=== PATIENT | male | born 1985 | race Two or more races ===

== ENCOUNTER 2017-04-07 00:41 | Emergency (ER) | payer BC ==
[~2017-04-07] VITALS: Ht 172.7 cm; Wt 99.8 kg
[~2017-04-07 00:41] MED LIST: RANITIDINE HCL150 MG ORAL
--- NOTE | 2017-04-07 01:37 | Emergency Room Report ---
History of Present Illness General Chief Complaint: Lower Extremity Injury Source: Patient Present Illness HPI Is a 31-year-old male with no past history. He presents with right ankle/foot pain for one day. No trauma. Pain is to the dorsum of the ankle/foot area. Worse with walking. Pain is 12 out of 10. Similar symptom in the past. Denies any other complaint. No fever or chills. No nausea no vomiting. Allergies: Coded Allergies: No Known Allergies (Unverified , 06/30/15) Patient History Past Medical History: see triage record, old chart reviewed Past Surgical History: none Pertinent Family History: none Social History: Denies: smoking Immunizations: other Reviewed Nursing Documentation: PMH: Agreed, PSxH: Agreed Nursing Documentation-PMH Past Medical History: No History, Except For Hx Asthma: Yes Review of Systems Eye: Denies: eye pain, blurred vision ENT: Denies: ear pain, nose congestion, throat swelling Respiratory: Denies: cough, shortness of breath Cardiovascular: Denies: chest pain, palpitations Gastrointestinal: Denies: abdominal pain, diarrhea, nausea, vomiting Musculoskeletal: Reports: joint pain, Denies: back pain Skin: Denies: rash Neurological: Denies: headache, numbness Endocrine: Denies: increased thirst, increased urine Hematologic/Lymphatic: Denies: easy bruising All Other Systems: negative except mentioned in HPI Physical Exam Vital Signs Date Time Temp Pulse Resp B/P (MAP) Pulse Ox O2 Delivery O2 Flow Rate FiO2 04/07/17 01:00 99.7 109 18 155/92 97 Room Air vitals with high blood pressure Sp02 EP Interpretation: reviewed, normal General Appearance: well appearing, no apparent distress, alert Head: normocephalic, atraumatic Eyes: bilateral eye PERRL, bilateral eye EOMI ENT: hearing grossly normal, normal pharynx Neck: full range of motion, supple, no meningismus Respiratory: chest non-tender, lungs clear, normal breath sounds Cardiovascular #1: regular rate, rhythm, no murmur Gastrointestinal: normal bowel sounds, non tender, no mass, no organomegaly, no bruit, non-distended Musculoskeletal: back normal, normal range of motion, other - Right ankle: No edema. No redness. No warmth. Tenderness over the anterior aspect of the ankle/proximal foot. Sensation normal. Pulse normal. Psychiatric: mood/affect normal Skin: warm/dry Procedures Splinting Splinting : Consent: Verbal Location: Right ankle Pre-Made Type: KIM wrap Pre-Proc Neuro Vasc Exam: normal Post-Proc Neuro Vasc Exam: normal Patient Tolerated: Well Complications: None Medical Decision Making Diagnostic Impression: Primary Impression: Ankle joint pain Qualified Codes: M25.571 - Pain in right ankle and joints of right foot ER Course This agent presents with pain over the ankle/foot area. Could be inflammatory process. I don't feel any redness or warmth to indicate gout, pseudogout or septic joint. no fractures Or dislocation. We'll discharge home. Other X-Ray Diagnostic Results Other X-Ray Diagnostic Results : X-Ray ordered: X-rays right ankle # of Views/Limited Vs Complete: 3 View Indication: Pain EP Interpretation: Yes Interpretation: no dislocation, no soft tissue swelling, no fractures Impression: No acute disease Electronically Signed by: Electronically signed by Susan Hui MD Last Vital Signs Date Time Temp Pulse Resp B/P (MAP) Pulse Ox O2 Delivery O2 Flow Rate FiO2 04/07/17 01:00 99.7 109 18 155/92 97 Room Air Status: improved Disposition: HOME, SELF-CARE Condition: Stable Scripts Ibuprofen* (MOTRIN*) 600 Mg Tablet 600 MG ORAL THREE TIMES A DAY, #30 TAB 0 Refills Prov: SUSAN HUI M.D. 04/07/17 Referrals: NOT CHOSEN NITO/,REFERRING (PCP) Patient Instructions: Ankle Sprain Additional Instructions: Elevate ankle. Ice pack to the area. Followup with your DrPérez in 7 days. Return if worse. SUSAN HUI M.D. Apr 07, 2017 01:37
[2017-04-07] MEDS ORDERED: IBUPROFEN600 MG ORAL (01:41)
[2017-04-07 01:46] VITALS: BP 155/92
[2017-04-07] MEDS ORDERED: Norco 5mg/325mg tab ORAL ONE (02:00)
--- NOTE | 2017-04-07 10:22 | Diagnostic Imaging Report ---
History: Pain Technique: Frontal, lateral, and oblique views of the right foot are provided. Comparison: No prior study is available for comparison. Findings: Overall bony mineralization is within normal limits. There is no evidence of acute fracture or dislocation. No significant erosive or arthritic change is noted. The soft tissues appear grossly normal. No significant joint effusion is noted. Impression: No evidence of acute fracture or dislocation.
== END 2017-04-07 01:47 | disposition home or self-care (01) ==
LOC: EMR 01:15
DX: M25.571 Pain in right ankle and joints of right foot (principal); J45.909 Unspecified asthma, uncomplicated
CPT/HCPCS: 99283

== ENCOUNTER 2019-01-04 20:20 | Emergency (ER) | payer BC ==
[~2019-01-04] VITALS: Ht 170.2 cm; Wt 95.3 kg
[~2019-01-04 20:20] MED LIST changes: +IBUPROFEN600 MG ORAL
[2019-01-04 20:25] VITALS: BP 163/104
[2019-01-04] MEDS ORDERED: NKM (20:25)
--- NOTE | 2019-01-04 20:25 | NUR ---
ED Nurse Note: pt ambulated to ed c/o right earache x 2 days. pt states, "I may have irritated it by over cleaining with a qtip. it feels like its swollen"
--- NOTE | 2019-01-04 20:27 | NUR ---
ED Nurse Note: mother nika at bedside
[2019-01-04] MEDS ORDERED: CIPRODEX OTIC7.5 M1 RIGHT EAR (20:36)
[2019-01-04] MEDS ORDERED: AUGMENTIN 875-1 EAC1 ORAL (20:36)
--- NOTE | 2019-01-04 20:37 | Emergency Room Report ---
History of Present Illness General Chief Complaint: Earache Source: Patient Present Illness HPI 33-year-old male, presents with right ear pain, started 2 days prior to arrival sharp, achy in nature, moderate severity, no aggravating relieving factors, patient thinks he has been using a Q-tip that may have aggravated it, no fever no chills, no chest pain, no shortness of breath Allergies: Coded Allergies: No Known Allergies (Unverified , 06/30/15) Patient History Social History: Reports: smoking, alcohol use Reviewed Nursing Documentation: PMH: Agreed; PSxH: Agreed Nursing Documentation-PMH Past Medical History: No History, Except For Hx Asthma: Yes Review of Systems All Other Systems: negative except mentioned in HPI Physical Exam Vital Signs Date Time Temp Pulse Resp B/P (MAP) Pulse Ox O2 Delivery O2 Flow Rate FiO2 01/04/19 20:22 99.0 77 18 163/104 (123) 97 Room Air Sp02 EP Interpretation: reviewed, normal General Appearance: well appearing, no apparent distress, alert Head: normocephalic, atraumatic Eyes: bilateral eye PERRL, bilateral eye EOMI ENT: uvula midline, moist mucus membranes, other - Left ear normal, right ear canal swollen, difficult to appreciate TM, Neck: supple, thyroid normal, supple/symm/no masses Respiratory: lungs clear, no respiratory distress, no retraction, no accessory muscle use Cardiovascular #1: normal peripheral pulses, regular rate, rhythm, no edema, no gallop, no murmur Gastrointestinal: non tender, soft, no guarding, no rebound Musculoskeletal: normal inspection Neurologic: alert, oriented x3 Psychiatric: mood/affect normal Skin: no rash, warm/dry Medical Decision Making Diagnostic Impression: Primary Impression: Earache, right Additional Impression: Otitis externa of right ear ER Course Patient with most likely an otitis externa, difficult to appreciate eardrum, patient counseled not to use Q-tips, to follow-up with an ENT, return precautions discussed, antibiotic provide, disposition home with return precautions Last Vital Signs Date Time Temp Pulse Resp B/P (MAP) Pulse Ox O2 Delivery O2 Flow Rate FiO2 01/04/19 20:25 99.0 77 18 163/104 97 Room Air Disposition: HOME, SELF-CARE Condition: Stable Scripts Amoxicillin/Potassium Clav 875-125* (AUGMENTIN 875-125 TABLET*) 1 Each Tablet 1 TAB ORAL TWICE A DAY, #20 TAB Prov: Amos Hernandez MD 01/04/19 Ciprofloxacin Hcl/Dexameth (CIPRODEX OTIC SUSPENSION) 7.5 Ml Drops.susp 4 DROP RIGHT EAR TWICE A DAY for 10 Days, #1 EA Prov: Amos Hernandez MD 01/04/19 Referrals: [facility] Patient Instructions: Otitis Media, Adult, [id number], Otitis Externa, Easy- to-Read Additional Instructions: The patient was provided with discharge instructions, notified to follow-up with a primary care doctor and or specialist in the next 24-48 hours, and to return to the ED if they have worsening of their symptoms. Please note that this report is being documented using [employer] technology. This can lead to erroneous entry secondary to incorrect interpretation by the dictating instrument. Please follow-up with an ENT doctor Amos Hernandez MD Jan 04, 2019 20:37
--- NOTE | 2019-01-04 20:40 | NUR ---
ER DISCHARGE NOTE: Patient is cleared to be discharged per ERMD, pt is aox4, on room air, with stable vital signs. pt was given dc and prescription instructions, pt was able to verbalize understanding, pt id band removed. pt is able to ambulate with steady gait. pt took all belongings. pt accompanied by mother.
== END 2019-01-04 20:40 | disposition home or self-care (01) ==
LOC: EMR 20:40
DX: H60.91 Unspecified otitis externa, right ear (principal)
CPT/HCPCS: 99282